=== PATIENT | male | born 1945 | race Caucasian/White ===

== ENCOUNTER → 2019-11-07 | Outpatient (CLI) | payer MEDICARE, OTHER ==
--- NOTE | 2019-11-07 13:01 | KCIC ---
CT of the chest without contrast, lung cancer screening protocol INDICATION: Lung cancer screening protocol. Patient reports 03-95-torl-year history of smoking. COMPARISON STUDY: None TECHNIQUE: Multidetector CT imaging of the chest was performed using a low-dose, lung cancer screening protocol. FINDINGS: Heart size is normal. No pericardial effusion is identified. Coronary calcification is noted. No pathologically enlarged mediastinal lymph nodes are identified. There is no pneumothorax. There is no pleural effusion. No acute-appearing consolidative infiltrate is seen. Diffuse bronchiectasis is seen. Subpleural emphysematous changes noted. There is an irregular groundglass density nodule in the basilar right lower lobe measuring approximately 1.5 cm and maximal dimension. Limited visualization of the upper abdomen is unremarkable. No acute osseous changes are seen. IMPRESSION: 1. 1.5 cm groundglass opacity in the basilar right lower lobe. Lung RADS category 2. Repeat low-dose lung in 12 months. 2. Emphysema 3. Coronary calcification CT DOSING PQRS STATEMENT: One or more of the following individualized dose reduction techniques were utilized for this examination: 1. Automated exposure control 2. Adjustment of the mA and/or kV according to patient size 3. Use of iterative reconstruction technique Electronically signed by: Flo Brar MD (11/07/2019 12:58 PM) [id number]
== END | disposition home or self-care (01) ==
LOC: KCIC CT 12:16
PROVIDERS: ATTEND Family Medicine
DX: Z12.2 Encounter for screening for malignant neoplasm of respiratory organs (principal); J43.9 Emphysema, unspecified; J98.4 Other disorders of lung; I25.10 Atherosclerotic heart disease of native coronary artery without angina pectoris; Z87.891 Personal history of nicotine dependence
CPT/HCPCS: G0297

== ENCOUNTER → 2020-08-01 | Outpatient (CLI) | payer MEDICARE ==
--- NOTE | 2020-08-01 13:33 | KCIC ---
EXAM: CT CHEST WITHOUT CONTRAST, low-dose lung cancer screening protocol HISTORY: Past smoker, agent origin asbestos exposure, 1.5 cm groundglass opacity on prior exam. COMPARISON: CT chest 11/07/2019 TECHNIQUE: Helical CT of the chest performed without contrast per low-dose lung cancer screening pro tocol. Coronal and sagittal reformats were obtained. One or more of the following individualized dose reduction techniques were utilized for this examinat ion: 1. Automated exposure control 2. Adjustment of the mA and/or kV according to patient size 3. Use of iterative reconstruction technique. FINDINGS: Thyroid gland and thoracic inlet: Unremarkable. Heart and great vessels: Heart is normal in size. There is no pericardial effusion. There is calcifie d coronary artery atherosclerosis. The thoracic aorta is normal in caliber. Mild calcified aortic ath erosclerosis. Mediastinum and zay: No mediastinal or hilar lymphadenopathy. Lungs and pleura: An irregular, 1.5 x 0.9 cm subpleural groundglass opacity in the posterior medial r ight lower lobe is unchanged (image 250, series 6). 3 mm subpleural pulmonary nodule in the posterior left lower lobe is unchanged. Small calcified granuloma in the right upper lobe. No new pulmonary no dule. Mild paraseptal emphysema and subpleural reticular changes are redemonstrated. There is mild ai rway wall thickening. No pleural effusion. Chest wall and axillae: Normal. Upper abdomen: Cholecystectomy. Bones: Severe degenerative disc disease at C6-C7 and C7-T1 and moderate degenerative disc disease at T7-T8. IMPRESSION: 1. Unchanged 1.5 cm irregular subpleural groundglass opacity in the posterior right lower lobe, and 3 mm subpleural nodule in the posterior left lower lobe. Lung RADS 2-benign appearance. Recommend [facility] screening with low-dose CT in 12 months. 2. Unchanged mild emphysema. 3. Unchanged coronary artery calcifications. Electronically signed by: Kandis Frank MD (08/01/2020 12:15 PM) [id number]
== END ==
LOC: KCIC CT 09:01
PROVIDERS: ATTEND Family Medicine
DX: Z12.2 Encounter for screening for malignant neoplasm of respiratory organs (principal); R91.1 Solitary pulmonary nodule; J43.9 Emphysema, unspecified; I25.10 Atherosclerotic heart disease of native coronary artery without angina pectoris; Z87.891 Personal history of nicotine dependence
CPT/HCPCS: G0297

== ENCOUNTER → 2021-08-20 | Outpatient (CLI) | payer MEDICARE ==
--- NOTE | 2021-08-20 13:44 | KCIC ---
EXAM: CT CHEST WITHOUT CONTRAST (LDCT LUNG CANCER SCREENING). HISTORY: Risk factors for pulmonary malignancy. Cigarette smoking history. Asbestos exposure. Agent O range exposure. TECHNIQUE: CT of the chest was performed without intravenous contrast using a low-dose lung screening protocol. Findings analysis is based on ACR Lung-RADS v1.1. *One or more of the following individual ized dose reduction techniques were utilized for this examination: 1. Automated exposure control. 2. Adjustment of the mA and/or kV according to patient size. 3. Use of iterative reconstruction technique. COMPARISON: 08/01/2020. FINDINGS: Nodules: There is a stable 1.1 cm groundglass opacity abutting the pleura of the medial right lower l obe, allowing for differences in slice position and volume averaging. The previously described 3 mm l eft pulmonary nodule is not conspicuous on the current exam. There is a stable 2 mm nodule within the anterior inferior right upper lobe. There is mild emphysema. There is a stable 1.3 cm groundglass opacity abutting the pleura of the lateral right upper lobe, al lowing for differences in slice position and volume averaging. The heart is normal in size. There is coronary artery atherosclerosis. There is no pathologically enl arged lymph node. There is a tiny hiatal hernia. There is no acute finding involving the upper abdome n. There is no acute or suspicious osseous finding. IMPRESSION/RECOMMENDATION: 1. Stable groundglass opacities measuring 1.1 cm and 1.3 cm abutting the pleura of the right upper an d lower lobes, allowing for differences in slice position and volume averaging. There is also a tiny 2 mm right upper lobe pulmonary nodule. No new suspicious pulmonary nodule. Lung RADS category 2: Fol low-up with a low dose lung cancer screening CT at 12 months is recommended. 2. Emphysema. 3. Tiny hiatal hernia. Electronically signed by: Alissa Jane MD (08/20/2021 1:42 PM) [id number]
== END ==
LOC: KCIC CT 12:43
PROVIDERS: ATTEND Family Medicine
DX: R91.8 Other nonspecific abnormal finding of lung field (principal); J43.9 Emphysema, unspecified; K44.9 Diaphragmatic hernia without obstruction or gangrene; I25.10 Atherosclerotic heart disease of native coronary artery without angina pectoris; Z87.891 Personal history of nicotine dependence
CPT/HCPCS: 71271